=== PATIENT | male | born 1960 | race Caucasian/White ===

== ENCOUNTER 2017-05-20 17:56 | Emergency (ER) | payer OTHER ==
[2017-05-20 20:55] VITALS: BP 141/82
== END 2017-05-20 20:55 | disposition home or self-care (01) ==
LOC: ED 17:56
DX: S50.362A Insect bite (nonvenomous) of left elbow, initial encounter (principal); L03.114 Cellulitis of left upper limb; W57.XXXA Bitten or stung by nonvenomous insect and other nonvenomous arthropods, initial encounter; Y93.89 Activity, other specified; Y99.8 Other external cause status; Y92.89 Other specified places as the place of occurrence of the external cause
CPT/HCPCS: J0690

== ENCOUNTER 2017-05-22 17:03 | Emergency (ER) | payer OTHER ==
[~2017-05-22] VITALS: Ht 172.7 cm; Wt 72.6 kg
[2017-05-22 17:10] VITALS: BP 155/100
== END 2017-05-22 18:08 | disposition home or self-care (01) ==
LOC: ED 17:03
DX: Z09 Encounter for follow-up examination after completed treatment for conditions other than malignant neoplasm (principal); L02.91 Cutaneous abscess, unspecified; L03.114 Cellulitis of left upper limb

== ENCOUNTER 2020-06-22 19:00 | Emergency (ER) | payer OTHER ==
[~2020-06-22] VITALS: Ht 172.7 cm; Wt 72.7 kg
[2020-06-22 19:27] VITALS: Ht 172.7 cm; Wt 72.7 kg
[2020-06-22 21:53] VITALS: BP 165/94
== END 2020-06-22 21:53 | disposition home or self-care (01) ==
LOC: ED 19:00
DX: S49.82XA Other specified injuries of left shoulder and upper arm, initial encounter (principal); R03.0 Elevated blood-pressure reading, without diagnosis of hypertension; X58.XXXA Exposure to other specified factors, initial encounter; Y93.89 Activity, other specified; Y92.89 Other specified places as the place of occurrence of the external cause; Y99.8 Other external cause status